=== PATIENT | female | born 1965 | race Caucasian/White ===

== ENCOUNTER 2017-12-10 05:52 | Emergency (ER) | payer MEDICAID ==
[2017-12-10] MEDS: DIPHENHYDRAMINE 50 MG INJ IV (07:15)
[2017-12-10 07:39] LABS: ADD MAN DIFF? NO
[2017-12-10 07:43] LABS: WHITE BLOOD COUNT 6.1 10^3/ul (4.8-10.8)
[2017-12-10 07:43] LABS: BASOPHILS % 0.7 % (0.0-2.0); EOSINOPHILS # 0.4 10^3/ul (0.0-0.5); EOSINOPHILS % 6.7 % (0.0-7.0); HEMATOCRIT 37.9 % (37.0-47.0); HEMOGLOBIN 12.3 g/dl (12.0-16.0); LYMPHOCYTES # 1.3 10^3/ul (0.8-2.9); LYMPHOCYTES % 20.5 % (15.0-51.0); MEAN CORPUSCULAR HGB CONC 32.5 g/dl (32.0-37.0); MEAN CORPUSCULAR VOLUME 86.3 fl (82.0-101.0); MEAN PLATELET VOLUME 10.2 fl (7.4-10.4); MONOCYTE # 0.7 10^3/ul (0.3-0.9); MONOCYTES % 11.7 % (0.0-11.0); NEUTROPHIL # 3.7 10^3/ul (1.6-7.5); NEUTROPHILS % 60.2 % (39.0-77.0); PLATELET COUNT 319 10^3/UL (140-415); RED BLOOD COUNT 4.39 10^6/ul (4.20-5.40); RED CELL DISTRIBUTION WIDTH 15.5 % (11.5-14.5)
[2017-12-10 07:57] LABS: ANION GAP 17 (8-16); BLOOD UREA NITROGEN 22 mg/dl (7-20); CALCIUM 9.3 mg/dl (8.4-10.2); CARBON DIOXIDE 28 mmol/L (21-31); CHLORIDE 101 mmol/L (97-110); CREATININE 0.83 mg/dl (0.44-1.00); GLUCOSE 91 mg/dl (70-220); POTASSIUM 4.1 mmol/L (3.5-5.1); SODIUM 142 mmol/L (135-144)
[2017-12-10 08:04] LABS: INR 0.93; PROTIME 12.6 Sec (11.9-14.9)
[2017-12-10 08:05] LABS: PARTIAL THROMBOPLASTIN TIME 28.3 Sec (25.0-35.0)
[2017-12-10 08:10] LABS: TROPONIN-I < 0.012 ng/ml (0.00-0.12)
[2017-12-10] MEDS: PENICILLIN G BENZ 2.4 MIL UNIT SYG IM (09:32)
[2017-12-10 09:47] LABS: RPR TITER 1:32 (0)
[2017-12-10 09:50] LABS: RAPID PLASMA REAGIN REACTIVE (NR)
== END 2017-12-10 10:36 | disposition home or self-care (01) ==
LOC: E/R 05:52
DX: I27.82 Chronic pulmonary embolism (principal); A51.49 Other secondary syphilitic conditions; I10 Essential (primary) hypertension; J44.9 Chronic obstructive pulmonary disease, unspecified; R40.2142 Coma scale, eyes open, spontaneous, at arrival to emergency department; R40.2252 Coma scale, best verbal response, oriented, at arrival to emergency department; R40.2362 Coma scale, best motor response, obeys commands, at arrival to emergency department; Z87.891 Personal history of nicotine dependence
CPT/HCPCS: 36415; 71045; 80048; 84484; 85025; 85610; 85730; 86592; 93005; 96372; 96374; 99285-25

== ENCOUNTER 2018-06-20 18:00 | Emergency (ER) | payer OTHER, MEDICAID ==
[2018-06-20] MEDS: KETOROLAC 30 MG INJ IM (19:05)
== END 2018-06-20 22:00 | disposition home or self-care (01) ==
LOC: FTE 18:00
DX: S11.94XA Puncture wound with foreign body of unspecified part of neck, initial encounter (principal); S61.247A Puncture wound with foreign body of left little finger without damage to nail, initial encounter; I10 Essential (primary) hypertension; J44.9 Chronic obstructive pulmonary disease, unspecified; F17.210 Nicotine dependence, cigarettes, uncomplicated; W34.00XA Accidental discharge from unspecified firearms or gun, initial encounter; Y92.9 Unspecified place or not applicable
CPT/HCPCS: 70360; 70490; 73140; 96372; 99285-25

== ENCOUNTER 2018-08-26 12:50 | Emergency (ER) | payer OTHER ==
[2018-08-26] MEDS: MOXIFLOXACIN 0.5% 3 ML OPH LEFT EYE (14:27)
== END 2018-08-26 14:55 | disposition home or self-care (01) ==
LOC: FTE 14:55
DX: H10.9 Unspecified conjunctivitis (principal); H16.002 Unspecified corneal ulcer, left eye; I10 Essential (primary) hypertension; J44.9 Chronic obstructive pulmonary disease, unspecified; F17.210 Nicotine dependence, cigarettes, uncomplicated
CPT/HCPCS: 99283; Z7502